=== PATIENT | female | born 1960 | race Caucasian/White ===

== ENCOUNTER 2022-02-23 07:05 | Inpatient (IN) | payer BC ==
[~2022-02-23] VITALS: Ht 160 cm; Wt 112.9 kg
[2022-02-23] MEDS ORDERED: fentaNYL CITRATE/PF 100 MCG/2 ML AMP ONE (09:32)
[2022-02-23] MEDS ORDERED: DEXAMETHASONE SOD PHOSPHATE 4 MG/ML VIAL ONE (09:32)
[2022-02-23] MEDS ORDERED: SUCCINYLCHOLINE CHLORIDE 20 MG/ML(QUELICIN) ONE (09:32)
[2022-02-23] MEDS ORDERED: PROPOFOL 200MG/ 20ML VIAL (DIPRIVAN) IV ONE (09:32)
[2022-02-23] MEDS ORDERED: NS IRRIG SOLN 1000 ML IR ONE (09:32)
[2022-02-23] MEDS ORDERED: ONDANSETRON HCL 4 MG/2 ML VIAL ONE (09:32)
[2022-02-23] MEDS ORDERED: SEVOFLURANE 15 MIN GAS INH ONE (09:32)
[2022-02-23] MEDS ORDERED: LR 1,000 ML IV.SOLN IV ONE (09:32)
[2022-02-23] MEDS ORDERED: MIDAZOLAM HCL 2 MG/2 ML VIAL (VERSED) ONE (09:32)
[2022-02-23] MEDS ORDERED: ceFAZolin SODIUM 2 GM VIAL ONE (09:32)
[2022-02-23] MEDS ORDERED: LIDOCAINE/EPI 1% 1:100000 20 ML VIAL ONE (09:32)
[2022-02-23] MEDS ORDERED: ALBUTEROL MDI INHALATION 8 GM INH ONE (09:32)
[2022-02-23] MEDS ORDERED: HYDROmorphone 1 MG/ML INJ. CARTRIDGE IVP PRN (13:30)
[2022-02-23] MEDS ORDERED: LABETALOL 100 MG/ 20ML VIAL IVP PRN (13:30)
[2022-02-23] MEDS ORDERED: KETOROLAC TROMETHAMINE 30 MG VIAL IVP PRN (13:30)
[2022-02-23] MEDS ORDERED: ONDANSETRON HCL 4 MG/2 ML VIAL IVP PRN ×2 (13:30→14:45)
[2022-02-23] MEDS ORDERED: METOCLOPRAMIDE HCL 10 MG/2 ML VIAL IVP PRN (13:30)
[2022-02-23] MEDS ORDERED: DEXTROSE 50% JECT 50 ML DISP.SYRIN IVP PRN (14:45)
[2022-02-23] MEDS ORDERED: ONDANSETRON 4 MG ODT TAB PO PRN (14:45)
[2022-02-23] MEDS ORDERED: D5W 1,000 ML IV PRN (14:45)
[2022-02-23] MEDS ORDERED: GLUCOSE (DEXTROSE) ORAL GEL -Adults PO PRN (14:45)
[2022-02-23] MEDS ORDERED: DEXM40CP PO (14:57)
[2022-02-23] MEDS ORDERED: LAMO150T2 PO (14:59)
[2022-02-23] MEDS ORDERED: DESV50TA4 PO (14:59)
[2022-02-23] MEDS ORDERED: QUET50TA PO (15:00)
[2022-02-23] MEDS ORDERED: QUET400T PO (15:01)
[2022-02-23] MEDS ORDERED: LYR50 PO (15:02)
[2022-02-23] MEDS ORDERED: TOPI50TA PO (15:03)
[2022-02-23] MEDS ORDERED: [UNRECOGNIZED DRUG - CODE] (15:04)
[2022-02-23] MEDS ORDERED: METF-379 PO (15:05)
[2022-02-23] MEDS ORDERED: BIOT25008 PO (15:05)
[2022-02-23] MEDS ORDERED: TRAZ-251 PO (15:06)
[2022-02-23] MEDS ORDERED: CLON1TAB12 PO (15:07)
[2022-02-23] MEDS ORDERED: DONE10TA44 PO (15:08)
[2022-02-23] MEDS ORDERED: TRAM50TA2 PO (15:09)
[2022-02-23] MEDS ORDERED: CYCL10TA24 PO (15:09)
[2022-02-23] MEDS ORDERED: LIP10 PO (15:10)
[2022-02-23] MEDS ORDERED: PRO40 PO (15:10)
[2022-02-23] MEDS ORDERED: HYDROmorphone 1 MG/ML INJ. CARTRIDGE ONE (15:48)
[2022-02-23] MEDS: KCL 20 mEq in D5/0.45NS 1000mL 1,000 ML IV SCH (17:53)
[2022-02-23] MEDS ORDERED: INSULIN REGULAR, HUMAN 100 UNITS/ML, 3 ML VIAL (humuLIN R) SUBCUT PRN (18:15)
[2022-02-23 18:34] VITALS: BP_SYST 153
[2022-02-23] MEDS ORDERED: traMADol HCL HCL 50 MG TABLET (ULTRAM) PO PRN (18:45)
[2022-02-23] MEDS ORDERED: PANTOPRAZOLE SODIUM 40 MG TAB PO ONE (19:15)
[2022-02-23] MEDS ORDERED: metFORMIN HCL 500 MG TABLET PO ONE (19:15)
[2022-02-23 20:00] VITALS: BP_SYST 129
[2022-02-23] MEDS ORDERED: DONEPEZIL HCL 5 MG TABLET (ARICEPT) PO SCH (21:00)
[2022-02-23] MEDS ORDERED: traZODone HCL 50 MG TABLET (DESYREL) PO SCH (21:00)
[2022-02-23] MEDS ORDERED: CYCLOBENZAPRINE HCL 10 MG TABLET (FLEXERIL) PO SCH (21:00)
[2022-02-23] MEDS ORDERED: ATORVASTATIN 10 MG TABLET PO SCH (21:00)
[2022-02-23] MEDS ORDERED: QUEtiapine FUMARATE 100 MG TABLET PO SCH (21:00)
[2022-02-23] MEDS ORDERED: INSULIN REGULAR, HUMAN 100 UNITS/ML, 3 ML VIAL SUBCUT SCH (21:00)
[2022-02-23] MEDS ORDERED: clonazePAM 0.5 MG TABLET PO SCH (21:00)
[2022-02-23] MEDS: HYDROcodone/ACETAMIN 5-325 MG TAB (NORCO/ VICODIN) PO PRN (21:04)
[2022-02-23] MEDS: CALCIUM 500 MG/TAB PO SCH (21:06)
[2022-02-23] MEDS: PREGABALIN 25 MG CAPSULE (LYRICA) PO SCH (21:06)
[2022-02-23] MEDS: LamoTRIgine 100 MG TABLET PO SCH (21:07)
[2022-02-23 23:00] LABS: ALBUMIN 3.6 g/dL (3.4-4.8); CALCIUM 8.3 mg/dL (8.4-11.0)
[2022-02-24] VITALS: BP_SYST 128
[2022-02-24] MEDS: KCL 20 mEq in D5/0.45NS 1000mL 1,000 ML IV SCH ×2 (00:23→06:15)
[2022-02-24 04:00] VITALS: BP_SYST 139
[2022-02-24] MEDS ORDERED: LEVOTHYROXINE SODIUM 0.075 MG TABLET PO SCH (07:00)
[2022-02-24] MEDS ORDERED: LEVOTHYROXINE SODIUM 0.1 MG TABLET PO SCH (07:00)
[2022-02-24 07:37] LABS: ALBUMIN 3.2 g/dL (3.4-4.8); CALCIUM 7.9 mg/dL (8.4-11.0)
[2022-02-24 08:00] VITALS: BP_SYST 143
[2022-02-24] MEDS ORDERED: PANTOPRAZOLE SODIUM 40 MG TAB PO SCH (09:00)
[2022-02-24] MEDS ORDERED: QUEtiapine FUMARATE 25 MG TABLET PO SCH (09:00)
[2022-02-24] MEDS ORDERED: metFORMIN HCL 500 MG TABLET PO SCH (09:00)
[2022-02-24] MEDS: CALCIUM 500 MG/TAB PO SCH ×2 (09:17→15:56)
[2022-02-24] MEDS: PREGABALIN 25 MG CAPSULE (LYRICA) PO SCH (09:18)
[2022-02-24] MEDS: LamoTRIgine 100 MG TABLET PO SCH (09:18)
[2022-02-24] MEDS: HYDROcodone/ACETAMIN 5-325 MG TAB (NORCO/ VICODIN) PO PRN (09:39)
[2022-02-24 14:35] LABS: ALBUMIN 3.3 g/dL (3.4-4.8); CALCIUM 7.9 mg/dL (8.4-11.0)
[2022-02-24 16:05] VITALS: BP_SYST 142
== END 2022-02-24 17:00 | disposition home or self-care (01) | DRG 626 ==
LOC: SDS 07:05 → SMU 07:06 → EDSTATUS 09:00 → SMU 14:53 → SDS 14:53 → STU 16:25 → SMU 17:01
PROVIDERS: ADMIT Otolaryngology; ATTEND Otolaryngology
PROC: 4A11X4G Monitoring of Peripheral Nervous Electrical Activity, Intraoperative, External Approach (ICD-10-PCS; 2022-02-23)
PROC: 0GTK0ZZ Resection of Thyroid Gland, Open Approach (ICD-10-PCS; principal; 2022-02-23 09:32)
DX: E04.2 Nontoxic multinodular goiter (principal); Z68.41 Body mass index [BMI] 40.0-44.9, adult; Z20.822 Contact with and (suspected) exposure to COVID-19; E66.01 Morbid (severe) obesity due to excess calories
CPT/HCPCS: 36415; 82040; 82310; 82962; 83970; 87081; 88307; C1782; G0378; J0330; J1100; J1170; J1815; J2405; J2704; J3010; J3465; J7120